=== PATIENT | female | born 1980 | race Caucasian/White ===

== ENCOUNTER → 2020-01-06 | Outpatient (CLI) | payer OTHER ==
--- NOTE | 2020-01-06 11:47 | 2DMMODE ---
[place] [address] 2 D/M-MODE ECHOCARDIOGRAM Name: NADEEMSERAFIN Iggy Room: [facility]#: [id number] Admission: 01/06/20 Attend Phys: Jeffery Light DO Discharge: Date of : 78 Date of Service: 01/06/20 1146 Report #: [id number] THIS REPORT FOR: cc: Charla Alexis Maggie M. DO Liston, Michael J. MD [facility] ~ APPROVED REPORT Study performed: 01/06/2020 08:34:53 EXAM: Comprehensive 2D, Doppler, and color-flow Echocardiogram Patient Location: Out-Patient BSA: 1.64 HR: 65 bpm Other Information Study Quality: Good Indications Mitral Valve Prolapse SVT 2D Dimensions IVSd: 11.04 (7-11mm) LVOT Diam: 19.76 (18-24mm) LVDd: 38.38 mm PWd: 9.10 (7-11mm) Ascending Ao: 22.36 (22-36mm) LVDs: 23.21 (25-40mm) Aortic Root: 20.01 mm Volumes Left Atrial Volume (Systole) LA ESV Index: 14.30 mL/m2 Aortic Valve AoV Peak Teofilo.: 1.30 m/s AO Peak Gr.: 6.71 mmHg LVOT Max P.60 mmHg AO Mean Gr.: 3.82 mmHg LVOT Mean P.67 mmHg LVOT Max V: 0.95 m/s AO V2 VTI: 25.43 cm LVOT Mean V: 0.59 m/s EMELINA (VTI): 2.43 cm2 LVOT V1 VTI: 20.12 [place] [address] 2 D/M-MODE ECHOCARDIOGRAM Name: SERAFIN SILVER Room: [facility]#: [id number] Admission: 01/06/20 Attend Phys: Jeffery Light DO Discharge: Date of : 78 Date of Service: 01/06/20 1146 Report #: [id number] E/A Ratio: 1.41 MV Decel. Time: 165.76 ms MV E Max Teofilo.: 0.73 m/s MV PHT: 48.07 ms MVA (PHT): 4.58 cm2 TDI E/Lateral E': 4.56 E/Medial E': 6.64 Medial E' Teofilo.: 0.11 m/s Lateral E' Teofilo.: 0.16 m/s Pulmonary Valve PV Peak Teofilo.: 0.69 m/s PV Peak Gr.: 1.92 mmHg Left Ventricle The left ventricle is normal size. There is normal LV segmental wall motion. There is normal left ventricular wall thickness. Left ventricular systolic function is normal. LVEF is 65%. The left ventricular diastolic function is normal. Right Ventricle The right ventricle is normal size. The right ventricular systolic function is normal. Atria The left atrium size is normal. The right atrium size is normal. Aortic Valve The aortic valve is normal in structure. No aortic regurgitation is present. There is no aortic valvular stenosis. Mitral Valve The mitral valve is normal in structure. Trace mitral regurgitation. No evidence of mitral valve stenosis. Tricuspid Valve The tricuspid valve is normal in structure. There is no tricuspid valve regurgitation noted. Pulmonic Valve The pulmonary valve is normal in structure. There is no pulmonic valvular regurgitation. Great Vessels The aortic root is normal in size. IVC [place] [address] 2 D/M-MODE ECHOCARDIOGRAM Name: SERAFIN SILVER Room: [facility]#: [id number] Admission: 01/06/20 Attend Phys: Jeffery Light DO Discharge: Date of : 78 Date of Service: 01/06/20 1146 Report #: [id number] collapses >50% with inspiration. Pericardium There is no pericardial effusion. <Conclusion> The left ventricle is normal size. There is normal left ventricular wall thickness. Left ventricular systolic function is normal. LVEF is 65%. The left ventricular diastolic function is normal. There is normal LV segmental wall motion. The mitral valve is normal in structure. Trace mitral regurgitation. IVC is normal in size and collapses >50% with inspiration. No evidence of significant MVP seen. <ELECTRONICALLY SIGNED> By: Red Sawyer MD, FACC 01/06/20 1146 1146 1146 Red Sawyer MD, FACC /INF
== END ==
LOC: M.CRD 08:36
PROVIDERS: ATTEND Family Medicine
DX: I34.1 Nonrheumatic mitral (valve) prolapse (principal); I47.1 Supraventricular tachycardia